=== PATIENT | male | born 1965 | race Caucasian/White ===

== ENCOUNTER → 2018-05-04 12:46 | Outpatient (POV) | payer MEDICAID, SELFPAY | PROVIDERS: Visit Provider Nurse Practitioner Acute Care | DX: Z00.00 Encounter for general adult medical examination without abnormal findings (principal) ==

== ENCOUNTER 2021-05-08 00:55 | Inpatient (IN) | payer MEDICAID, SELFPAY ==
[2021-05-08] VITALS (22 sets, daily range): BP systolic 93–127; BP diastolic 43–87; PULSE 64–93; RESP 12–19; TEMP 36.6–36.8; O2SAT 94–100; BMI 28.5
--- NOTE | 2021-05-08 | IR_ITS ---
APPROVED REPORT Patient Location: Inpatient Speech Language Pathologist: AMELIE Guevara RT (R) PROCEDURES Left heart catheterization Left ventriculogram Selective coronary angiogram Drug-eluting stent deployment to the proximal ED INDICATION Acute non-ST elevation myocardial infarction, Syncope, Coronary artery disease Informed consent was obtained prior to the procedure. COMPLICATIONS None Estimated Blood Loss: Less than 10 mls TECHNIQUE One percent lidocaine used to anesthetize the right anterior aspect of the wrist. The right radial artery was accessed via the Seldinger technique. A 6 [place] sheath was placed in the right radial artery. 2.5 mg of verapamil, 800 mcg of nitroglycerin, 1mg Lidocaine and 5000 U Heparin were given through the arterial sheath. The papa catheter was also used to perform left heart catheterization, left ventriculogram and selective coronary angiogram. At the end the diagnostic angiogram therapeutic heparin was administered and a Choice PT extra-support wire was placed in the LAD. A 3 mm x 22 mm resolute [place] stent was placed in the proximal LAD and deployed at 20 sonia reducing the critical stenosis to 0%. GINA-3 flow was present before and after the procedure. At the end of procedure the apparatus was removed the sheath was removed and hemostasis was achieved using TR banding patient was transferred to postop putting in stable condition ANGIOGRAPHIC RESULTS The left main artery Normal The left anterior descending artery Has a critical proximal long 90% stenosis The circumflex artery Is a dominant vessel and has proximal 20 to 30% stenosis with an additional long 60% stenosis between the large third and fourth obtuse marginal artery. The third obtuse marginal artery is a large 3.25 mm vessel and has a long proximal concentric 40% stenosis The right coronary artery Is a nondominant vessel and has proximal long 90 and 80% diffuse stenoses. There is GINA-3 flow down the vessel The KHALIL ventriculogram reveals Mildly reduced at 45% with anterior wall hypokinesis The left ventricular end-diastolic pressure 30 mmHg IMPRESSION Critical proximal LAD disease as described above Successful stenting the proximal ID critical disease reduced to 0% with 1 drug-eluting stent Slight left ventricular dysfunction of 45% with regional wall motion abnormality Severely elevated LVEDP likely secondary to ischemia Persistent severe disease throughout the nondominant right coronary as described above with moderate disease throughout the dominant distal circumflex artery PLAN 1. Dual antiplatelet therapy 2. LDL less than 55 3. Avoidance of tobacco products 4. Aggressive risk factor modification 5. I would like to place a loop recorder on the patient because of the syncope. I am still concerned there could be some ischemia from the right coronary artery although it is unlikely. 6. If patient is not agreeable to a loop recorder then I recommend a 30-day event monitor 7. Cardiac rehabilitation 8. Beta-blockers EVE inhibitors Electronically signed by : Jimmy Rosales MD 05/08/2021 12:27:04
--- NOTE | 2021-05-08 01:20 | PC.NURSE ---
patient up to floor at 00:47.
[2021-05-08 03:28] LABS: PTT Heparin (inpatient only) 23.4 Seconds (23.6-34.0)
--- NOTE | 2021-05-08 03:33 | PC.NURSE ---
Pt denies any CP. States that he came in prior hospital for hip pain. MD Rosales consulted for orders. New orders received and carried out. Heparin is currently infusing @ 1000 units/hr. Managed per [facility]. aPTT obtained prior. VSS. Pt is sinus on telemetry with some ST depression. No other concerns. Will continue to monitor.
[2021-05-08 06:47] LABS: Basophils % 0.4 % (0.1-2.0); Eosinophils # 0.3 K/mm3 (0.0-0.4); Eosinophils % 2.8 % (0.1-12.0); Hematocrit 30.8 % (42.0-52.0); Hemoglobin 10.5 g/dL (14.1-18.0); Lymphocytes % 32.3 % (10-50); Mean Corpuscular HGB Conc 34.1 g/dL (31.8-35.4); Mean Corpuscular Hemoglobin 29.8 pg (27.0-31.2); Mean Corpuscular Volume 87.5 fl (80-94); Mean Platelet Volume 8.3 fl (7.4-10.4); Monocytes # 0.4 K/mm3 (0.1-1.0); Monocytes % 4.5 % (1.7-9.3); Neutrophils # 5.5 K/mm3 (1.8-7.8); Neutrophils % 59.9 % (37.0-80.0); Platelet Count 273 K/mm3 (142-424); Red Blood Count 3.52 M/mm3 (4.60-6.20); White Blood Count 9.2 K/mm3 (4.8-10.8)
[2021-05-08 07:10] LABS: Coronavirus 19, PCR Not Detected (NotDetected); Influenza A, PCR Not Detected (NotDetected); Influenza B, PCR Not Detected (NotDetected)
[2021-05-08 07:21] LABS: Troponin I 0.83 ng/ml (0.00-0.034)
--- NOTE | 2021-05-08 07:23 | HMH.PHAVTE ---
[facility] Pharmacy VTE Monitoring - Patient Demographics Admission date: 05/08/21 Report Date: 05/08/21 Time: 07:23 Allergies/Adverse Reactions: Patient Allergies Penicillins [PENICILLINS] Allergy (Mild, Unverified 02/25/17 14:07) Height: 1.83 m Weight: 95.368 kg - VTE Risk Labs: VTE Related Lab Results APTT 23.4 Seconds (23.6-34.0) L 05/08/21 03:00 VTE Risk Level: Moderate Risk Clinical Trial Participant: No - Prophylaxis VTE Prophylaxis Ordered?: Yes Types of VTE Prophylaxis: TEDS Knee High
--- NOTE | 2021-05-08 07:25 | PC.NURSE ---
notified of troponin 0.83.
--- NOTE | 2021-05-08 07:30 | HMH.PHAINT ---
home medication list verified using list from outpatient pharmacy
[2021-05-08 07:50] LABS: Alanine Aminotransferase 15 U/L (12-78); Albumin Level 3.3 g/dl (3.5-5.0); Albumin/Globulin Ratio 1.3 (1.1-1.8); Alkaline Phosphatase 61 U/L (38-126); Aspartate Amino Transferase 29 U/L (17-59); Bilirubin,Total 0.3 mg/dl (0.2-1.3); Blood Urea Nitrogen 36 mg/dl (9-20); Calcium 8.3 mg/dl (8.4-10.2); Carbon Dioxide 23 mmol/L (22.0-30.0); Chloride 110 mmol/L (98-107); Creatinine Clearance Estimated 115 mL/min (50-200); Estimated Glomerular Filt Rate 78 ml/min (>60); GFR (African American) 95 ML/MIN (>60); Globulin 2.6 g/dL (1.3-3.2); Glucose 115 mg/dl (74-100); Sodium 139 mmol/L (136-145); Total Protein,Serum 5.9 g/dl (6.3-8.2)
--- NOTE | 2021-05-08 08:57 | HMH.HP ---
*Admission Date: 05/08/21 *Chief complaint: Back pain *History of present illness: This is a 55-year-old white gentleman who presented to the emergency department at [facility] with back pain and hip pain after a syncopal episode a few days ago. The patient was then transferred here to [facility] because he was found to have a non-ST elevation myocardial infarction. 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 He states that he was standing in the bathroom urinating when he had sudden onset of syncope. The patient states that he was only lost consciousness for a few seconds and then got up. He states that he has had back and hip pain since he fell during his syncopal episode and hit his back and hip on the tub. He went to the emergency department at [facility] because of the back and hip pain. He was found to have an elevated troponin at 1.1 at [facility] and then was transferred here to [facility] because of the non-ST elevation myocardial infarction. He denies any chest pain or pressure. He denies any shortness of breath or edema. He denies any fever, chills, nausea, vomiting, diarrhea, PND or orthopnea. He does have a history of coronary artery disease with 2 stents placed approximately 4 to 5 years ago per the patient's report. He does have a history of hypertension, hyperlipidemia and is a diabetic (Per Kwaku Weinstein APRN). 55-year-old male patient resting in bed quietly he denies any chest pain or shortness of breath during the night, he also reports not having any chest pain or shortness of breath after fall. Current oxygenation 98% on room air. Cardiology consulted [facility] History I have reviewed the patient's past medical history: Yes Medical History: Reports:: Aneurysm, Coronary Artery Disease, Diabetes Mellitus Type 2, Hypertension Denies:: Diabetes Mellitus Type 1, Internal Pacemaker, Lung Disease *Have you ever received a pneumonia vaccine?: No *Have you received a flu vaccine this season?: No Other Surgeries: Yes: Coronary Stent. No: Pacemaker - *Social History Smoking Status: Current every day smoker Tobacco Type: cigarettes # Packs/Day (cigarettes): 1 Alcohol Intake: never *Occupational Status:: employed *Travel in the last 8 weeks: None Family Hx:: Coronary Artery Disease, Heart Attack, Hyperlipidemia Review of Systems - Review of Systems Review of systems:: pertinent systems reviewed and negative unless documented below - Constitutional Denies fatigue, Denies fever(s) - Eyes Denies blurry vision, Denies double vision - ENT Denies dizziness, Denies difficulty swallowing, Denies facial pain - *Cardiovascular Denies chest pain, Denies shortness of breath, Denies irregular heart rhythm - *Respiratory Denies chest congestion, Denies cough, Denies shortness of breath - *Gastrointestinal Denies abdominal pain, Denies change in bowel habits - *Musculoskeletal Reports back pain, Denies muscle cramps - Integumentary/Breasts Denies bleeding lesions, Denies yellowing of the skin - *Neurologic Reports fainting, Denies abnormal hearing, Denies abnormal speech - Psychiatric Denies lack of enjoyment, Denies anxiety, Denies hearing things others do not hear - Endocrine Denies cold intolerance, Denies excessive sweating - Hematologic/Lymphatic Denies easy bleeding, Denies easy bruising - Allergic/Immunologic Denies GI upset with certain foods, Denies wheezing Meds Home Medications Medication Instructions Recorded Confirmed Type Aspirin [Aspir 81] 81 mg PO DAILY 06/11/18 05/08/21 History Clopidogrel Bisulfate [Plavix 75mg 75 mg PO DAILY 06/11/18 05/08/21 History Tab] Escitalopram Oxalate [Lexapro] 10 mg PO DAILY 06/11/18 05/08/21 History Melatonin 1 mg PO DAILY 06/11/18 05/08/21 History Metformin HCl [Fortamet] 1,000 mg PO BID 06/11/18 05/08/21 History Atorvastatin
--- NOTE | 2021-05-08 10:03 | CA_ITS ---
APPROVED REPORT EXAM: Comprehensive 2D, Doppler, and color-flow Echocardiogram Naphthalene Operator: Joleen Hunt, RCS, RVS Ht: 6 ft 0 in Wt: 210lbs BSA: 2.18 BP: 126/63 mmHg Indications: CAD, Coronary stents, AbN EKG, SYNCOPE, Echo Enhancing Agent Indication: Rule out thrombus Agent(s) / Amount(s) Used: Definity 2 cc 2D Dimensions LVOT 2.01 cm (M/F) 1.5-2.5 LA Volume 43.30 mL LA Volume Index 19.816188 mL/m2 (M/F) 16-34 M-Mode Dimensions RVDd 2.66 cm (0.9-2.6) LA Diam 3.90 cm (1.9-4.0) LVDd 5.64 cm (3.5-5.7) Ao Diam 3.72 cm (2.0-3.7) LVDs 4.03 cm (3.5-5.7) IVSd 0.97 cm (0.6-1.1) PWd 1.05 cm (0.6-1.1) EF (Teich) 54.40% EPSs 0.94 cm FS 28.50% EDV (Teich) 156.20 mL TAPSE 2.51 (<1.7) ESV (Teich) 71.30 mL LV Diastology E Decel Time 167.00 (160-240 msec) E/A Ratio 1.24 MED E' 5.60 (< 7 cm/sec) MED A' 8.90 cm/s E'/MED E' Ratio 17.87 (>14) Aortic Valve LVOT Max 79.00 (70-110 cm/s) LVOT VTI 15.81 cm AoV Peak Rob. 122.00 (50-130 cm/s) AO Peak GR. 6.00 mmHg AO Mean GR. 3.70 (<5 mmHg) AO VTI 25.78 (18-25 cm) HEIDE (VTI) 1.95 (2.5-4.5 cm2) Mitral Valve MV A Velocity 81.00 (40-130 cm/s) E/A Ratio 1.24 MV Decel. Time 167.00 (160-240 ms) Pulmonary Valve PV Peak Velocity 83.00 (50-150 cm/s) Tricuspid Valve TR P. Velocity 209.00 cm/s Left Ventricle Left atrium is mildly enlarged, left ventricle is normal size, mild concentric left ventricular hypertrophy, visually estimated ejection fraction 40 to 45%, there is marked hypokinesis involving mid to distal septum and anterior apical wall, there is no left ventricular thrombus seen, Definity contrast was utilized to delineate the endocardial surfaces. Diastolic parameters are inconclusive. Right Ventricle Right atrium and right ventricle are normal size and contractility. Aortic Valve Aortic valve is minimally thickened and fibrosed there is no aortic stenosis or aortic insufficiency. Mitral Valve Mitral valve grossly normal, there is trace mitral regurgitation. Tricuspid Valve Tricuspid grossly normal, there is trace tricuspid regurgitation, tricuspid rotation jet velocity is inadequate for calculation of the right ventricular systolic pressure. Pulmonic Valve Pulmonic valve is poorly visualized. Great Vessels Aortic root is normal size. Inferior vena cava is poorly visualized. Pericardium No significant pericardial effusion. Conclusion 1. Mildly enlarged left atrium, normal left ventricular size, mild concentric left ventricular hypertrophy, visually estimated ejection fraction 40 to 45% with multiple segmental wall motion abnormality described above, there is no left ventricular thrombus seen, Definity contrast was utilized to delineate the endocardial surfaces, diastolic parameters are inconclusive. 2. Trace mitral and tricuspid regurgitation. 3. No significant pericardial effusion. 4. Inferior vena cava is poorly visualized. Electronically signed by : Fidencio Noriega MD 05/08/2021 20:08:52
--- NOTE | 2021-05-08 10:06 | HMH.CNCARD ---
History of Present Illness Consult date: 05/08/21 Requesting physician: Keshav Martínez Consult reason: known to you Chief complaint: syncope History of present illness: This is a 55-year-old white gentleman who presented to the emergency department at [facility] with back pain and hip pain after a syncopal episode a few days ago. The patient was then transferred here to [facility] because he was found to have a non-ST elevation myocardial infarction. 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 He states that he was standing in the bathroom urinating when he had sudden onset of syncope. The patient states that he was only lost consciousness for a few seconds and then got up. He states that he has had back and hip pain since he fell during his syncopal episode and hit his back and hip on the tub. He went to the emergency department at [facility] because of the back and hip pain. He was found to have an elevated troponin at 1.1 at [facility] and then was transferred here to [facility] because of the non-ST elevation myocardial infarction. He denies any chest pain or pressure. He denies any shortness of breath or edema. He denies any fever, chills, nausea, vomiting, diarrhea, PND or orthopnea. He does have a history of coronary artery disease with 2 stents placed approximately 4 to 5 years ago per the patient's report. He does have a history of hypertension, hyperlipidemia and is a diabetic. [facility] History I have reviewed the patient's past medical history: Yes Medical History: Reports:: Coronary Artery Disease, Diabetes Mellitus Type 2, Hypertension Denies:: Diabetes Mellitus Type 1, Internal Pacemaker, Lung Disease *Have you ever received a pneumonia vaccine?: No *Have you received a flu vaccine this season?: No Other Surgeries: Yes: Coronary Stent. No: Pacemaker - *Social History Smoking Status: Current every day smoker Tobacco Type: cigarettes # Packs/Day (cigarettes): 1 Alcohol Intake: never *Occupational Status:: employed *Travel in the last 8 weeks: None Family Hx:: Coronary Artery Disease, Heart Attack, Hyperlipidemia Meds Home Medications Medication Instructions Recorded Confirmed Type Aspirin [Aspir 81] 81 mg PO DAILY 06/11/18 05/08/21 History Clopidogrel Bisulfate [Plavix 75mg 75 mg PO DAILY 06/11/18 05/08/21 History Tab] Escitalopram Oxalate [Lexapro] 10 mg PO DAILY 06/11/18 05/08/21 History Melatonin 1 mg PO DAILY 06/11/18 05/08/21 History Metformin HCl [Fortamet] 1,000 mg PO BID 06/11/18 05/08/21 History Atorvastatin Calcium [Lipitor 40mg 40 mg PO HS 05/08/21 05/08/21 History Tab] Dapagliflozin Propanediol [Farxiga] 10 mg PO DAILY 05/08/21 05/08/21 History Fenofibrate Nanocrystallized 48 mg PO DAILY 05/08/21 05/08/21 History [Fenofibrate] Metoprolol Succinate [Metoprolol 25 mg PO DAILY 05/08/21 05/08/21 History Succinate 25mg Tablet*] Omeprazole [Omeprazole 20mg 20 mg PO HS 05/08/21 05/08/21 History Capsule] glipiZIDE [Glipizide ER] 20 mg PO BID 05/08/21 05/08/21 History lisinopriL [Lisinopril] 10 mg PO DAILY 05/08/21 05/08/21 History Allergies Allergy/AdvReac Type Severity Reaction Status Date / Time Penicillins [PENICILLINS] Allergy Mild Unverified 02/25/17 14:07 Exam Vital signs and Labs for Last 24 Hours: Temp Pulse Resp BP Pulse Ox 97.9 F 92 H 18 126/63 100 05/08/21 04:00 05/08/21 04:00 05/08/21 04:00 05/08/21 04:00 05/08/21 04:00 Laboratory Results - last 24 hr 05/08/21 01:38: SARS-CoV-2 (PCR) Not detected, Influenza A Untype (PCR) Not detected, Influenza Type B (PCR) Not detected 05/08/21 03:00: APTT 23.4 L 05/08/21 05:13: Troponin I 0.83 H 05/08/21 05:13: WBC 9.2, RBC 3.52 L, Hgb 10.5 L, Hct 30.8 L, MCV 87.5, MCH 29.8, MCHC 34.1, RDW 15.0, Plt Count 273, MPV 8.3, Neut % (Auto) 59.9, Lymph % (Auto) 32.3, [place] % (Auto)
[2021-05-08 10:36] LABS: PTT Heparin (inpatient only) 26.3 Seconds (23.6-34.0)
[2021-05-08 12:48] LABS: CATHL Activated Clotting Time 234 SEC (74-125)
[2021-05-09] VITALS: BP 146/87; PULSE 89; PULSE 95; RESP 17; TEMP 36.8; O2SAT 100
[2021-05-09 04:00] VITALS: BP 145/90; PULSE 80; PULSE 84; RESP 14; TEMP 36.6; O2SAT 98
[2021-05-09 05:03] VITALS: BMI 28.0
--- NOTE | 2021-05-09 05:25 | PC.NURSE ---
Addendum entered by Jocelyn Mosley RN 05/09/21 05:27: dressing remains in place to right radial cath site w/ small amount of shadowing noted, no change in this since beginning of shift Original Note: pt has rested intermittently t/o shift, has complained of pain in back and legs, has been treated with PRN medications with some relief, pt has not complained of chest pain or SOA, states that he feels so much better, HR 83-95, systolic BP 122-146, has remained on room air with O2 sats 97-100%
[2021-05-09 06:48] LABS: Basophils # 0.1 K/mm3 (0-0.2); Basophils % 0.8 % (0.1-2.0); Eosinophils # 0.3 K/mm3 (0.0-0.4); Eosinophils % 3.6 % (0.1-12.0); Hematocrit 30.8 % (42.0-52.0); Hemoglobin 10.2 g/dL (14.1-18.0); Lymphocytes % 25.9 % (10-50); Mean Corpuscular HGB Conc 33.1 g/dL (31.8-35.4); Mean Corpuscular Hemoglobin 29.7 pg (27.0-31.2); Mean Corpuscular Volume 89.6 fl (80-94); Mean Platelet Volume 8.8 fl (7.4-10.4); Monocytes # 0.4 K/mm3 (0.1-1.0); Monocytes % 5.2 % (1.7-9.3); Neutrophils # 4.9 K/mm3 (1.8-7.8); Neutrophils % 64.5 % (37.0-80.0); Platelet Count 281 K/mm3 (142-424); Red Blood Count 3.44 M/mm3 (4.60-6.20); Red Cell Distribution Width 14.8 % (11.5-17.5); White Blood Count 7.6 K/mm3 (4.8-10.8)
[2021-05-09 07:04] LABS: Anion Gap 7.8 mEq/L (5-15); Blood Urea Nitrogen 28 mg/dl (9-20); Calcium 8.6 mg/dl (8.4-10.2); Carbon Dioxide 26 mmol/L (22.0-30.0); Chloride 106 mmol/L (98-107); Chol/HDL Ratio 5.7 (1-3.5); Cholesterol 155 mg/dl (140-200); Creatinine Clearance Estimated 114 mL/min (50-200); Estimated Glomerular Filt Rate 78 ml/min (>60); GFR (African American) 95 ML/MIN (>60); Glucose 199 mg/dl (74-100); HDL Cholesterol 27 mg/dl (40-60); Potassium 3.8 mmoL/L (3.5-5.1); Sodium 136 mmol/L (136-145); Triglycerides 379 mg/dl (30-150); VLDL Cholesterol 76 mg/dL (0-40)
[2021-05-09 07:15] LABS: Direct LDL Cholesterol 63.28 mg/dL (100-129)
[2021-05-09 08:00] VITALS: BP 103/52; PULSE 80; PULSE 85; RESP 18; TEMP 36.5; O2SAT 100
--- NOTE | 2021-05-09 10:58 | HMH.PNCARD ---
Subjective Date: 05/09/21 Time: 10:00 Principal diagnosis: nonstemi Interval history: This is a 55-year-old white gentleman who presented to the emergency department at [facility] with back and hip pain after syncopal episode a few days prior to arrival. The patient was found to have a non-ST elevation myocardial infarction and was transferred here to [facility]. The patient underwent left cardiac catheterization yesterday with stenting to his proximal LAD. The patient had persistent disease in his right coronary artery which was too small for percutaneous intervention. The patient will remain on Plavix and aspirin for dual antiplatelet therapy. The patient states that he feels so much better today. He states that he did not even realize he felt so bad but he now feels like a different person. He denies any chest pain or pressure. He denies any shortness of breath or edema. He denies any fever, chills, nausea, vomiting, diarrhea, PND or orthopnea. The patient will need a 30-day event monitor placed prior to discharge home secondary to syncope. He declines a loop recorder. Echo shows: 1. Mildly enlarged left atrium, normal left ventricular size, mild concentric left ventricular hypertrophy, visually estimated ejection fraction 40 to 45% with multiple segmental wall motion abnormality described above, there is no left ventricular thrombus seen, Definity contrast was utilized to delineate the endocardial surfaces, diastolic parameters are inconclusive. 2. Trace mitral and tricuspid regurgitation. 3. No significant pericardial effusion. 4. Inferior vena cava is poorly visualized. [facility] shows: Critical proximal LAD disease as described above Successful stenting the proximal ID critical disease reduced to 0% with 1 drug-eluting stent Slight left ventricular dysfunction of 45% with regional wall motion abnormality Severely elevated LVEDP likely secondary to ischemia Persistent severe disease throughout the nondominant right coronary as described above with moderate disease throughout the dominant distal circumflex artery PLAN 1. Dual antiplatelet therapy 2. LDL less than 55 3. Avoidance of tobacco products 4. Aggressive risk factor modification 5. I would like to place a loop recorder on the patient because of the syncope. I am still concerned there could be some ischemia from the right coronary artery although it is unlikely. 6. If patient is not agreeable to a loop recorder then I recommend a 30-day event monitor 7. Cardiac rehabilitation 8. Beta-blockers EVE inhibitors Exam Vital signs and Labs for Last 24 Hours: Temp Pulse Resp BP Pulse Ox 97.7 F 85 18 103/52 L 100 05/09/21 08:00 05/09/21 08:00 05/09/21 08:00 05/09/21 08:00 05/09/21 08:00 Laboratory Results - last 24 hr 05/08/21 13:11: Activated Clotting Time 234 H* 05/09/21 05:32: WBC 7.6, RBC 3.44 L, Hgb 10.2 L, Hct 30.8 L, MCV 89.6, MCH 29.7, MCHC 33.1, RDW 14.8, Plt Count 281, MPV 8.8, Neut % (Auto) 64.5, Lymph % (Auto) 25.9, [place] % (Auto) 5.2, Eos % (Auto) 3.6, Baso % (Auto) 0.8, Neut # (Auto) 4.9, Lymph # (Auto) 2.0, [place] # (Auto) 0.4, Eos # (Auto) 0.3, Baso # (Auto) 0.1 05/09/21 05:32: Sodium 136, Potassium 3.8, Chloride 106, Carbon Dioxide 26, Anion Gap 7.8, BUN 28 H, Creatinine 1.00, Estimated Creat Clear 114, Estimated GFR 78, Est GFR ( Amer) 95, Glucose 199 H, Calcium 8.6, Triglycerides 379 H, Cholesterol 155, LDL Cholesterol Direct 63.28 L, VLDL Cholesterol 76 H, HDL Cholesterol 27 L, Cholesterol/HDL Ratio 5.7 H I & O for Last 24 hours: Intake & Output 05/06/21 05/07/21 05/08/21 05/09/21 23:59 23:59 23:59 23:59 Intake Total 843 / 843 240 / 240 Balance 843 / 843 240 / 240 Weight 210 lb 4 oz 207 lb 4.8 oz - Constitutional no acute distress, average body habitus - *Routine HEENT Exam Head: Present: normocephalic, atraumatic Eye: Present: EOMI, PERRL ENT: Present: mucous membr
--- NOTE | 2021-05-09 12:20 | HMH.DCSUM ---
General - General Admission date:: 05/08/21 Discharge date: 05/09/21 HPI HPI: This is a 55-year-old white gentleman who presented to the emergency department at [facility] with back pain and hip pain after a syncopal episode a few days ago. The patient was then transferred here to [facility] because he was found to have a non-ST elevation myocardial infarction. 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 He states that he was standing in the bathroom urinating when he had sudden onset of syncope. The patient states that he was only lost consciousness for a few seconds and then got up. He states that he has had back and hip pain since he fell during his syncopal episode and hit his back and hip on the tub. He went to the emergency department at [facility] because of the back and hip pain. He was found to have an elevated troponin at 1.1 at [facility] and then was transferred here to [facility] because of the non-ST elevation myocardial infarction. He denies any chest pain or pressure. He denies any shortness of breath or edema. He denies any fever, chills, nausea, vomiting, diarrhea, PND or orthopnea. He does have a history of coronary artery disease with 2 stents placed approximately 4 to 5 years ago per the patient's report. He does have a history of hypertension, hyperlipidemia and is a diabetic (Per Kwaku Weinstein APRN). 55-year-old male patient resting in bed quietly he denies any chest pain or shortness of breath during the night, he also reports not having any chest pain or shortness of breath after fall. Current oxygenation 98% on room air. Cardiology consulted Hospital Course Hospital Course: Abnormal Lab Results 05/08/21 13:11: Activated Clotting Time 234 H* 05/09/21 05:32: RBC 3.44 L, Hgb 10.2 L, Hct 30.8 L 05/09/21 05:32: BUN 28 H, Glucose 199 H, Triglycerides 379 H, LDL Cholesterol Direct 63.28 L, VLDL Cholesterol 76 H, HDL Cholesterol 27 L, Cholesterol/HDL Ratio 5.7 H echo:Conclusion 1. Mildly enlarged left atrium, normal left ventricular size, mild concentric left ventricular hypertrophy, visually estimated ejection fraction 40 to 45% with multiple segmental wall motion abnormality described above, there is no left ventricular thrombus seen, Definity contrast was utilized to delineate the endocardial surfaces, diastolic parameters are inconclusive. 2. Trace mitral and tricuspid regurgitation. 3. No significant pericardial effusion. 4. Inferior vena cava is poorly visualized. Ordering Physician: Jimmy Rosales MD Date of Service: 05/08/21 Procedure(s): CL lhc w ventricle Accession Number(s): [id number] cc: Sybil Trujillo ; Jimmy Rosales MD~ APPROVED REPORT Patient Location: Inpatient [employer]: AMELIE uGevara RT (R) PROCEDURES Left heart catheterization Left ventriculogram Selective coronary angiogram Drug-eluting stent deployment to the proximal ED INDICATION Acute non-ST elevation myocardial infarction, Syncope, Coronary artery disease Informed consent was obtained prior to the procedure. COMPLICATIONS None Estimated Blood Loss: Less than 10 mls TECHNIQUE One percent lidocaine used to anesthetize the right anterior aspect of the wrist. The right radial artery was accessed via the Seldinger technique. A 6 [place] sheath was placed in the right radial artery. 2.5 mg of verapamil, 800 mcg of nitroglycerin, 1mg Lidocaine and 5000 U Heparin were given through the arterial sheath. The papa catheter was also used to perform left heart catheterization, left ventriculogram and selective coronary angiogram. At the end the diagnostic angiogram therapeutic heparin was administered and a Choice PT extra-support wire was placed in the LAD. A 3 mm x 22 mm resolute [place] stent was placed in the proxim
--- NOTE | 2021-05-09 13:29 | HMH.PHACLD ---
Abhay Childers has received discharge medication counseling on the following medications: MD CHANGING METOPROLOL SUCCINATE FROM 25 MG TO 50 MG DAILY. MD STOPPING LISINOPRIL 10 MG DAILY AND STARTING ENTRESTO 24/26 MG BID. PATIENT IS CURRENTLY ALSO TAKING ATORVASTATIN 40 MG HS, ASPIRIN 81 MG DAILY, AND CLOPIDOGREL 75 MG DAILY.
--- NOTE | 2021-05-09 13:30 | PC.NURSE ---
Early this am pt unhooked him heart mx and stated he was being d/cd today and wanted to keep it moff. Pt's IV was also taken out and he stated some girl took it out, that had on shoe repairer apprentice scrubs and pink hair.
--- NOTE | 2021-05-10 13:30 | CARE MANAGER ---
Left message on cell phone post discharge for any follow-up concerns with medications, follow-up or discharge instructions.
== END 2021-05-09 13:10 | disposition home or self-care (01) | DRG 247 ==
PROVIDERS: Internal Medicine; Nurse Practitioner Family; Admitting Provider Emergency Medicine; PCP Family Medicine; Visit Provider Emergency Medicine
PROC: 027034Z Dilation of Coronary Artery, One Artery with Drug-eluting Intraluminal Device, Percutaneous Approach (ICD-10-PCS; principal; 2021-05-08 11:45)
DX: I21.4 Non-ST elevation (NSTEMI) myocardial infarction (principal); I25.10 Atherosclerotic heart disease of native coronary artery without angina pectoris; R55 Syncope and collapse; I10 Essential (primary) hypertension; E78.49 Other hyperlipidemia; F17.210 Nicotine dependence, cigarettes, uncomplicated; Z71.6 Tobacco abuse counseling; E11.9 Type 2 diabetes mellitus without complications
CPT/HCPCS: 36415; 80048; 80053; 80061; 84484; 85025; 85347; 85730; 92928; 93270; 93306; 93458; 99152; C1725; C1769; C1876; C9600; C9803; J1644; Q9957; Q9967; U0003; U0005